=== PATIENT | female | born 1955 | race Two or more races ===

== ENCOUNTER 2019-04-18 11:50 | Emergency (ER) | payer OTHER ==
[~2019-04-18] VITALS: Ht 157.5 cm; Wt 107.0 kg
[2019-04-18] MEDS ORDERED: LOSARTAN-HCTZ1 EAC1 PO (13:13)
== END 2019-04-18 16:02 | disposition home or self-care (01) ==
LOC: ER 11:50
DX: B34.9 Viral infection, unspecified (principal)